=== PATIENT | male | born 1970 | race Two or more races ===

== ENCOUNTER 2018-03-25 15:37 | Emergency (ER) | payer MEDICAID ==
[2018-03-25 19:16] LABS: ADD MAN DIFF? NO
[2018-03-25] MEDS: ONDANSETRON 4 MG INJ IV (19:17)
[2018-03-25] MEDS: NA PHOSPHATE/BIPHOS 133 ML ENEMA PR (19:17)
[2018-03-25] MEDS: morphine 4 MG/ML VIAL IV (19:17)
[2018-03-25] MEDS: BISACODYL 10 MG SUPP PR (19:17)
[2018-03-25 19:19] LABS: WHITE BLOOD COUNT 14.1 10^3/ul (4.8-10.8)
[2018-03-25 19:19] LABS: BASOPHILS % 0.1 % (0.0-2.0); HEMATOCRIT 50.7 % (42.0-52.0); HEMOGLOBIN 17.5 g/dl (14.0-18.0); LYMPHOCYTES # 1.2 10^3/ul (0.8-2.9); LYMPHOCYTES % 8.2 % (15.0-51.0); MEAN CORPUSCULAR HEMOGLOBIN 29.9 pg (29.0-33.0); MEAN CORPUSCULAR HGB CONC 34.5 g/dl (32.0-37.0); MEAN CORPUSCULAR VOLUME 86.7 fl (82.0-101.0); MEAN PLATELET VOLUME 10.9 fl (7.4-10.4); MONOCYTE # 0.6 10^3/ul (0.3-0.9); MONOCYTES % 4.3 % (0.0-11.0); NEUTROPHIL # 12.2 10^3/ul (1.6-7.5); PLATELET COUNT 255 10^3/UL (140-415); RED BLOOD COUNT 5.85 10^6/ul (4.70-6.10); RED CELL DISTRIBUTION WIDTH 12.7 % (11.5-14.5)
[2018-03-25 19:37] LABS: ALANINE AMINOTRANSFERASE 110 IU/L (13-69); ALBUMIN 4.6 g/dl (3.3-4.9); ALBUMIN/GLOBULIN RATIO 1.09; ALKALINE PHOSPHATASE 107 IU/L (42-121); ANION GAP 15 (5-13); ASPARTATE AMINO TRANSFERASE 58 IU/L (15-46); BILIRUBIN,INDIRECT 0.7 mg/dl (0-1.1); BILIRUBIN,TOTAL 0.7 mg/dl (0.2-1.3); BLOOD UREA NITROGEN 14 mg/dl (7-20); CALCIUM 9.7 mg/dl (8.4-10.2); CARBON DIOXIDE 26 mmol/L (21-31); CHLORIDE 100 mmol/L (97-110); CREATININE 1.06 mg/dl (0.61-1.24); Estimated GFR > 60 mL/min (>60); GLUCOSE 256 mg/dl (70-220); LIPASE 41 U/L (23-300); POTASSIUM 4.4 mmol/L (3.5-5.1); SODIUM 141 mmol/L (135-144); TOTAL PROTEIN 8.8 g/dl (6.1-8.1)
[2018-03-25] MEDS: KETOROLAC 30 MG INJ IV (21:47)
== END 2018-03-25 22:33 | disposition home or self-care (01) ==
LOC: E/R 15:37
DX: K52.9 Noninfective gastroenteritis and colitis, unspecified (principal); K59.00 Constipation, unspecified; K76.0 Fatty (change of) liver, not elsewhere classified
CPT/HCPCS: 36415; 74176; 80053; 83690; 85025; 96374; 96375; 99285-25